=== PATIENT | male | born 1985 | race Hispanic/Latino ===

== ENCOUNTER 2020-09-14 10:14 | Emergency (ER) | payer SELFPAY ==
--- NOTE | 2020-09-14 11:03 | ER ---
Nurse's Notes [facility] Name: Miguel Ernst Age: 35 yrs Sex: Male : 1985 Arrival Date: 09/14/2020 Time: 10:17 Bed Waiting Private MD: Diagnosis: Assessment: 09/14 10:30 Reassessment: Called to triage. No answer. Unable to locate patient. ss 10:39 Reassessment: Called to triage. Unable to locate patient in ER lobby and/or parking lot.ss ED Course: 10:17 Patient arrived in ED. ds1 10:18 Adele Garcia F[facility]-C is [facility]. kb 10:18 Reilly Moss MD is Attending Physician. kb 11:01 No provider procedures requiring assistance completed. Patient did not have IV access ss during this emergency room visit. Administered Medications: No medications were administered Outcome: 11:01 Eloped from waiting room. ss 11:01 unknown 11:03 Patient left the ED. ss Signatures: Adele Garcia FNP-C FNP-Ckb Sanford, Demi ds1 Desi Jacobo, JAMES RN ss
== END 2020-09-14 11:03 | disposition left against medical advice (07) ==
LOC: ER 10:14
DX: Z02.9 Encounter for administrative examinations, unspecified (principal)

== ENCOUNTER 2021-02-10 20:04 | Emergency (ER) | payer SELFPAY ==
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
[2021-02-10] MEDS ORDERED: ACETAMINOPHEN 500 MG TAB ONE (21:22)
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
[2021-02-10 23:17] VITALS: TEMP 97.8
[2021-02-10 23:19] VITALS: BP 149/87; O2SAT 100
--- OUTSIDE RECORDS SUMMARY | 2021-02-13 20:11 | XMS REPORT | Continuity of Care Document ---
:1985 Author Organization [facility] t Address [address] [place] [address] Care Team Providers Name Role Phone Unavailable Unavailable Unavailable Problems This patient has no known problems. Allergies, Adverse Reactions, Alerts This patient has no known allergies or adverse reactions. Medications This patient has no known medications. Procedures This patient has no known procedures. Results Test Description Test Time Test Comments Results Result Comments Source CREATINE KINASE 2020-09-09 12:04:00 Test Item Value Reference Range Interpretation Comme nts CK (test code = CK) 627 U/L 55-170 H [id number] 11:50:00 Test Item Value Reference Range Interpretation Comments WBC (test code = 11.9 K/UL 3.5-10.9 H WBC) RBC (test code = 5.34 M/UL 4.3-5.7 RBC) HGB (test code = 16.9 G/DL 13.0-17.9 HGB) HCT (test code = 49.2 % 38-52 HCT) MCV (test code = 92.1 FL 80-98 MCV) MCH (test code = 31.6 PG 28-32 MCH) MCHC (test code = 34.3 G/DL 32.5-36.5 MCHC) RDW (test code = 13.5 % 11.5-14.5 RDW) PLT (test code = 331 K/UL 150-450 PLT) MPV (test code = 9.3 FL 7.4-10.4 MPV) MANDIFF (test code = NO MANDIFF) SCAN (test code = NO SCAN) NEUT% (test code = 82.3 % 40-75 H NEUT%) LYMPH% (test code = 10.4 % 24-44 L LYMPH%) MONO% (test code = 5.2 % 0-13 MONO%) EOS% (test code = 1.4 % 0-4 EOS%) BASO % (test code = 0.3 % 0-2 BASO%) IG (test code = IG) 0 % 0-1 IG% (test code = 0.4 % 0-1 IG% = Metam yelocytes, IG%) Myelocytes, and Promyelocytes. (Immature neutr ophils not including " bands".) > 3% IG indic ates risk of sepsis NRBC% (test code = 0 /100 WBC NRBC%) ABS NEUT (test code 9.8 K/UL 1.2-7.2 H = NEUT) [id number] 11:33:00 Test Item Value Reference Range Interpretation Comments GLUCOSE (test code = URGLU) NEGATIVE MG/DL NEG-100 BILIRUBN (test code = URBILI) NEGATIVE NEGATIVE KETONE (test code = URKET) NEGATIVE MG/DL NEGATIVE BLOOD (test code = URBLD) NEGATIVE UR PH (test code = URPH) 7.0 5.0-7.5 PROTEIN (test code = URPRO) NEGATIVE MG/DL NEGATIVE NITRITES (test code = URNIT) NEGATIVE NEGATIVE UROBILINGEN (test code = 0.2 EU/DL 0.2-1.0 URURO) LEUKOCYT (test code = URLEU) NEGATIVE NEGATIVE UA COLOR (test code = UA YELLOW YELLOW COLOR) CLARITY (test code = CLARITY) CLEAR CLEAR SP GRAV (test code = URSPGRAV) 1.002 1.000-1.025 UAMICRO (test code = UAMICRO) NO ISTAT CHEM [id number] 11:11:00 Test Item Value Reference Range Interpretation Comments ISTATNA (test code = 138 MMOL/L 137-145 ISTATNA) ISTATK (test code = 4.1 MMOL/L 3.6-5.0 ISTATK) ISTATCL (test code = 101 MMOL/L 98-107 ISTATCL) ISTIONCA (test code = 1.21 MMOL/L 1.12-1.32 ISTIONCA) ISTCO2 (test code = 26 MMOL/L 22-30 ISTCO2) ISTATGLU (test code = 90 MG/DL 65-110 ISTATGLU) ISTATBUN (test code = 19.0 MG/DL 7.0-20.0 ISTATBUN) ISTCREA (test code = 1.3 MG/DL 0.7-1.5 ISTCREA) ISTATHCT (test code = 51 %PCV 37.0-52.0 ISTATHCT) ISTATHGB (test code = 17.3 G/DL 12.0-18.0 Notifi ed Nurse/MD of ISTAGB) results outside of Reference Range s ISTANGAP (test code = 16 MMOL/L Notifi ed Nurse/MD of ISTANGAP) results outside of Reference Range s
== END 2021-02-10 22:38 | disposition home or self-care (01) ==
LOC: ER 20:04
DX: S00.93XA Contusion of unspecified part of head, initial encounter (principal); W22.8XXA Striking against or struck by other objects, initial encounter; Y92.89 Other specified places as the place of occurrence of the external cause
CPT/HCPCS: 70450; 72125; 99285